=== PATIENT | female | born 1985 | race Caucasian/White ===

== ENCOUNTER 2019-11-08 19:17 | Emergency (ER) | payer OTHER ==
[~2019-11-08] VITALS: Ht 172.7 cm; Wt 64.4 kg
[2019-11-08 19:31] VITALS: Ht 172.7 cm; Wt 64.4 kg
[2019-11-08 23:01] VITALS: BP 113/78
== END 2019-11-08 23:03 | disposition home or self-care (01) ==
LOC: ED 19:17
DX: K21.9 Gastro-esophageal reflux disease without esophagitis (principal); U07.1 COVID-19; Z90.89 Acquired absence of other organs
CPT/HCPCS: Q0162